=== PATIENT | female | born 1980 | race Caucasian/White ===

== ENCOUNTER 2016-05-07 01:16 | Observation (INO) | payer OTHER ==
[2016-05-07] VITALS (21 sets, daily range): BP systolic 112–175; BP diastolic 62–102; PULSE 63–96; TEMP 97.4–98.2
[~2016-05-07] VITALS: Ht 165.1 cm; Wt 110.9 kg
[2016-05-07] MEDS ORDERED: TYLENOL 500MG500 MG PO (01:59)
[2016-05-07] MEDS ORDERED: PRENATAL PO (02:00)
[2016-05-07] MEDS ORDERED: TURMERIC500 MG PO (02:01)
[2016-05-07] MEDS ORDERED: IRON325 MG PO (02:03)
[2016-05-07 05:20] LABS: PH 6 (5-8); SQUAMOUS EPITHELIAL 0-2 /hpf; URINE APPEARANCE Clear; URINE BACTERIA None Seen /hpf; URINE BILIRUBIN Negative (NEGATIVE); URINE BLOOD 1+ (NEGATIVE); URINE COLOR Yellow; URINE GLUCOSE Negative (NEGATIVE); URINE KETONE Trace (NEGATIVE); URINE UROBILINOGEN Negative (NEGATIVE); URINE WBC 0-2 /hpf
[2016-05-07 05:48] LABS: ADJUSTED CALCIUM 9.6 mg/dL (8.4-10.2); ALBUMIN 3.4 gm/dL (3.5-5.0); BILIRUBIN,TOTAL 0.4 mg/dL (0.0-1.0); CALCIUM 9.1 mg/dL (8.4-10.2); CREATININE, serum 0.5 mg/dL (0.52-1.25); POTASSIUM 4.2 mmol/L (3.4-5.0)
[2016-05-07 06:11] LABS: MEAN CELL VOLUME 88 fl (80.0-100.0); MEAN CORPUSCULAR HGB CONC 34 g/dl (33.0-37.0); MEAN PLATELET VOLUME 11.1 fl (7.4-10.4); PLATELET COUNT 295 K/mm3 (130-400); RED BLOOD COUNT 3.72 M/mm3 (4.10-5.30); REDCELL DISTRIBUTION WIDTH-CV 12.9 % (11.5-14.5)
[2016-05-07 06:12] LABS: HEMATOCRIT 32.8 % (37.0-47.0); MEAN CORPUSCULAR HEMOGLOBIN 30 pg (27.0-31.0)
[2016-05-07 06:13] LABS: ADD PATHOLOGY DIFF REVIEW NO
[2016-05-07 06:51] LABS: BAND 14 % (0-10); NEUTROPHILS 79 % (42.0-75.2); PLATELET ESTIMATE NORMAL (NORMAL); TOTAL CELLS COUNTED 100
[2016-05-08] VITALS: BP 136/87; PULSE 81; TEMP 98.1
[2016-05-08 00:30] VITALS: BP 165/109; PULSE 123
[2016-05-08 01:06] VITALS: BP 146/94; PULSE 114
== END 2016-05-08 01:15 | disposition critical access hospital (66) ==
LOC: LDRO 01:16 → LDR 07:53 → OB 12:17
PROVIDERS: Student in an Organized Health Care Education/Training Program
DX: O60.03 Preterm labor without delivery, third trimester (principal); Z3A.31 31 weeks gestation of pregnancy; O16.3 Unspecified maternal hypertension, third trimester; O99.213 Obesity complicating pregnancy, third trimester; O26.899 Other specified pregnancy related conditions, unspecified trimester; Q51.4 Unicornate uterus; Z98.890 Other specified postprocedural states
CPT/HCPCS: G0378; J0290; J0702; J3105; J7120